=== PATIENT | male | born 1930 | race Caucasian/White ===

== ENCOUNTER 2016-05-15 10:11 | Outpatient (CLI) | payer MEDICARE | END 2016-05-15 10:12 | disposition home or self-care (01) | DX: E87.1 Hypo-osmolality and hyponatremia (principal); R97.20 Elevated prostate specific antigen [PSA]; I10 Essential (primary) hypertension ==

== ENCOUNTER 2017-09-22 14:34 | Outpatient (CLI) | payer MEDICARE ==
[2017-09-22 19:21] LABS: PSA FREE 0.52 ng/mL (0.16-2.81)
[2017-09-22 19:22] LABS: PSA TOTAL 2.55 ng/mL (0.000-2.000)
[2017-09-22 19:25] LABS: ALBUMIN 3.7 g/dL (3.2-5.5); ALKALINE PHOSPHATASE 46 IU/L (42-121); ALT ALANINE AMINOTRANSFERASE 13 IU/L (10-60); AST ASPARTATE AMINOTRANSFERASE 24 IU/L (10-42); BUN - BLOOD UREA NITROGEN 31 mg/dL (6-20); CALCIUM 8.8 mg/dL (8.5-10.3); CARBON DIOXIDE - CO2 23 mmol/L (21-32); CHLORIDE 97 mmol/L (101-111); CHOL/HDL RATIO 2.6 (<5.0); CHOLESTEROL 128 mg/dL; CREATININE 0.8 mg/dL (0.6-1.2); GFR - MDRD 91 (>89); GLUCOSE 79 mg/dL (70-100); HDL CHOLESTEROL 50 mg/dL; LDL CHOLESTEROL,CALCULATED 70 mg/dL; LDL/HDL RATIO 1.4 (<3.6); SODIUM 128 mmol/L (135-145); VLDL CHOLESTEROL 8 mg/dL
[2017-09-22 19:48] LABS: ALBUMIN/GLOBULIN RATIO 1.2 (1.0-2.2); TOTAL PROTEIN 6.9 g/dL (6.7-8.2)
[2017-09-22 20:08] LABS: BASOPHILS # (AUTO) 0.1 10^3/uL (0.0-0.1); BASOPHILS % (AUTO) 1.1 %; EOSINOPHILS # (AUTO) 0.2 10^3/uL (0.0-0.7); EOSINOPHILS % (AUTO) 2.6 %; HGB - HEMOGLOBIN 13.3 g/dL (14.0-18.0); LYMPHOCYTES # (AUTO) 1.7 10^3/uL (1.5-3.5); LYMPHOCYTES % (AUTO) 21.5 %; MEAN CORPUSCULAR HGB CONC 33.7 g/dL (32.0-36.0); MEAN PLATELET VOLUME 8.6 fL (7.4-11.4); MONOCYTES # (AUTO) 1.3 10^3/uL (0.0-1.0); MONOCYTES % (AUTO) 16.4 %; NEUTROPHILS # (AUTO) 4.7 10^3/uL (1.5-6.6); NEUTROPHILS % (AUTO) 58.4 %; RED CELL DISTRIBUTION WIDTH 13.3 % (12.0-15.0); WHITE BLOOD COUNT 8.1 x10^3/uL (4.8-10.8)
[2017-09-22 20:24] LABS: PLT - PLATELET COUNT 200 10^3/uL (130-450)
== END 2017-09-22 14:35 | disposition home or self-care (01) ==
LOC: LAB.WCP 14:34
PROVIDERS: ATTEND Family Medicine
DX: I10 Essential (primary) hypertension (principal); R97.20 Elevated prostate specific antigen [PSA]
CPT/HCPCS: 36415; 80053; 80061; 83721; 84154; 85025

== ENCOUNTER 2017-10-01 14:55 | Outpatient (CLI) | payer MEDICARE ==
[2017-10-01 19:19] LABS: CREATININE 0.8 mg/dL (0.6-1.2)
== END 2017-10-01 14:56 | disposition home or self-care (01) ==
LOC: LAB.WCP 14:55
PROVIDERS: ATTEND Family Medicine
DX: E87.1 Hypo-osmolality and hyponatremia (principal)
CPT/HCPCS: 36415; 80048

== ENCOUNTER 2017-10-05 14:30 | Outpatient (CLI) | payer MEDICARE ==
[2017-10-05 19:39] LABS: CALCIUM 8.9 mg/dL (8.5-10.3); CREATININE 0.7 mg/dL (0.6-1.2)
== END 2017-10-05 14:31 | disposition home or self-care (01) ==
LOC: LAB.WCP 14:30
PROVIDERS: ATTEND Family Medicine
DX: E87.1 Hypo-osmolality and hyponatremia (principal)
CPT/HCPCS: 36415; 80048

== ENCOUNTER 2017-10-13 14:46 | Outpatient (CLI) | payer MEDICARE ==
[2017-10-13 19:03] LABS: CALCIUM 8.8 mg/dL (8.5-10.3); CREATININE 0.7 mg/dL (0.6-1.2)
== END 2017-10-13 14:47 | disposition home or self-care (01) ==
LOC: LAB.WCP 14:46
PROVIDERS: ATTEND Family Medicine
DX: E87.1 Hypo-osmolality and hyponatremia (principal)
CPT/HCPCS: 36415; 80048

== ENCOUNTER 2017-10-28 15:00 | Outpatient (CLI) | payer MEDICARE ==
[2017-10-28 19:44] LABS: CALCIUM 8.6 mg/dL (8.5-10.3); CREATININE 0.7 mg/dL (0.6-1.2)
== END 2017-10-28 15:01 | disposition home or self-care (01) ==
LOC: LAB.WCP 15:00
PROVIDERS: ATTEND Family Medicine
DX: E87.1 Hypo-osmolality and hyponatremia (principal)
CPT/HCPCS: 36415; 80048

== ENCOUNTER 2017-11-17 14:30 | Outpatient (CLI) | payer MEDICARE ==
[2017-11-17 18:55] LABS: CALCIUM 8.6 mg/dL (8.5-10.3); CREATININE 0.7 mg/dL (0.6-1.2)
== END 2017-11-17 14:31 | disposition home or self-care (01) ==
LOC: LAB.WCP 14:30
PROVIDERS: ATTEND Family Medicine
DX: E87.1 Hypo-osmolality and hyponatremia (principal)
CPT/HCPCS: 36415; 80048; 81599; 82570; 83935; 84300

== ENCOUNTER 2017-12-18 13:50 | Outpatient (CLI) | payer MEDICARE ==
[2017-12-18 18:57] LABS: CALCIUM 8.7 mg/dL (8.5-10.3); CREATININE 0.7 mg/dL (0.6-1.2)
== END 2017-12-18 13:51 | disposition home or self-care (01) ==
LOC: LAB.WCP 13:50
PROVIDERS: ATTEND Family Medicine
DX: I10 Essential (primary) hypertension (principal)
CPT/HCPCS: 36415; 80048; 80053

== ENCOUNTER 2017-12-22 13:13 | Outpatient (CLI) | payer MEDICARE ==
--- NOTE | 2017-12-22 15:00 | XRAY Report ---
Reason: DIFFICULTY SWALLOWING Procedure Date: 12/22/2017 Accession Number: [id number] / [id number] Procedure: XR - Chest 2 View X-Ray CPT Code: 79054 FULL RESULT: EXAM: CHEST RADIOGRAPHY. EXAM DATE: 12/22/2017 02:13 PM. CLINICAL HISTORY: Difficulty swallowing. COMPARISON: None. TECHNIQUE: 2 views. FINDINGS: Limited examination due to underpenetrated AP view. Lungs/Pleura: No focal opacities evident. No pleural effusion. No pneumothorax. Normal volumes. Mediastinum: Heart and mediastinal contours are unremarkable. Other: Contrast within the stomach is related to modified barium swallow. This reveals a sliding hiatal hernia. IMPRESSION: No acute cardiopulmonary abnormality. Sliding hiatal hernia. [facility]
--- NOTE | 2017-12-22 15:23 | XRAY Report ---
Reason: DIFFICULTY SWALLOWING Procedure Date: 12/22/2017 Accession Number: [id number] / [id number] Procedure: FL - Modified Barium Swallow W/SP CPT Code: FULL RESULT: EXAM: MODIFIED BARIUM SWALLOW. EXAM DATE: 12/22/2017 01:50 PM. CLINICAL HISTORY: Difficulty swallowing. COMPARISON: None. TECHNIQUE: Under the direction of speech pathology, patient swallowed various consistencies of barium under lateral fluoroscopic observation of the neck. Fluoroscopy Time: 35 seconds. FINDINGS: Swallowing Mechanism: Delayed initiation of the swallowing reflex. Airway Protection: Normal epiglottic motion. No episodes of tracheal penetration or aspiration with all consistencies of barium. Pharynx: Normal. No significant vallecular or piriform sinus contrast pooling. Other: None. IMPRESSION: Delayed initiation of the swallow mechanism. No aspiration identified. [facility]
== END 2017-12-22 13:14 | disposition home or self-care (01) ==
LOC: DI 13:13
PROVIDERS: ATTEND Family Medicine
DX: R13.10 Dysphagia, unspecified (principal); E87.1 Hypo-osmolality and hyponatremia; I10 Essential (primary) hypertension; K44.9 Diaphragmatic hernia without obstruction or gangrene
CPT/HCPCS: 71046; 74230

== ENCOUNTER 2018-01-15 14:58 | Outpatient (CLI) | payer MEDICARE ==
[~2018-01-15 14:58] MED LIST: IOVERSOL 320 100 ML VIAL IVP ONE
[2018-01-15] MEDS ORDERED: IOVERSOL 320 100 ML VIAL IVP ONE (16:19)
--- NOTE | 2018-01-15 21:38 | CT Report ---
Reason: SYNDROME OF INAPPROPRIATE ANTIDIURETIC, HORMONE SE Procedure Date: 01/15/2018 Accession Number: [id number] / [id number] Procedure: CT - Chest W/ CPT Code: FULL RESULT: EXAM: CT CHEST EXAM DATE: 01/15/2018 03:54 PM. CLINICAL HISTORY: SYNDROME OF INAPPROPRIATE ANTIDIURETIC, HORMONE SE. COMPARISONS: None. TECHNIQUE: Routine helical CT imaging was performed through the chest. IV contrast: 80 cc Isovue-300. Reconstructions: Coronal and sagittal. In accordance with CT protocol optimization, one or more of the following dose reduction techniques were utilized for this exam: automated exposure control, adjustment of mA and/or KV based on patient size, or use of iterative reconstructive technique. FINDINGS: Lungs/Pleura: Mild bronchiectasis. Left upper lobe mass 2.0 cm on series 4 image 25. Numerous other nodules ranging from tiny to several mm scattered through the periphery of both lungs. No definite acute infiltrate, effusion, or pneumothorax. Mediastinum: Normal overall heart size. No pericardial effusion. At least three-vessel coronary artery calcification. Dilation of main pulmonary artery measuring 3.6 cm, indicating pulmonary artery hypertension. No lymphadenopathy. Small hiatal hernia. Bones: Degenerative changes. Visualized Abdomen: Contracted gallbladder with mural calcifications versus tiny gallstones. No ductal dilation. Otherwise unremarkable. Other: None. IMPRESSION: 1. Left lung mass with numerous other nodules, most likely metastatic. 2. Pulmonary artery hypertension, possible cholelithiasis, and other chronic or incidental findings. [facility]
== END 2018-01-15 14:59 | disposition home or self-care (01) ==
LOC: DI 14:58
PROVIDERS: ATTEND Family Medicine
DX: R91.8 Other nonspecific abnormal finding of lung field (principal); I27.20 Pulmonary hypertension, unspecified; E22.2 Syndrome of inappropriate secretion of antidiuretic hormone; R13.10 Dysphagia, unspecified; E87.1 Hypo-osmolality and hyponatremia
CPT/HCPCS: 71260; Q9967

== ENCOUNTER 2018-01-25 14:11 | Outpatient (CLI) | payer MEDICARE ==
[2018-01-25 19:46] LABS: ALBUMIN 3.8 g/dL (3.2-5.5); ALBUMIN/GLOBULIN RATIO 1.2 (1.0-2.2); BILIRUBIN,TOTAL 0.8 mg/dL (0.2-1.0); CALCIUM 8.8 mg/dL (8.5-10.3); CREATININE 0.7 mg/dL (0.6-1.2)
== END 2018-01-25 14:12 | disposition home or self-care (01) ==
LOC: LAB.WCP 14:11
PROVIDERS: ATTEND Family Medicine
DX: I10 Essential (primary) hypertension (principal)
CPT/HCPCS: 36415; 80053

== ENCOUNTER 2018-02-08 08:00 | Outpatient (CLI) | payer MEDICARE | END 2018-02-08 23:59 | disposition home or self-care (01) | LOC: LAB.WCP 08:00 | PROVIDERS: ATTEND Family Medicine | DX: R91.8 Other nonspecific abnormal finding of lung field (principal); E22.2 Syndrome of inappropriate secretion of antidiuretic hormone | CPT/HCPCS: 36415; 82378; 86301 ==

== ENCOUNTER 2018-05-04 08:00 | Outpatient (CLI) | payer MEDICARE ==
[2018-05-04 19:07] LABS: CALCIUM 8.8 mg/dL (8.5-10.3)
[2018-05-04 19:25] LABS: CREATININE 0.6 mg/dL (0.6-1.2)
[2018-05-04 19:26] LABS: HGB - HEMOGLOBIN 13.6 g/dL (14.0-18.0); MEAN CORPUSCULAR HEMOGLOBIN 32.8 pg (27.0-31.0); MEAN CORPUSCULAR HGB CONC 33.8 g/dL (32.0-36.0); MEAN CORPUSCULAR VOLUME 97.1 fL (80.0-94.0); MEAN PLATELET VOLUME 7.8 fL (7.4-11.4); RED BLOOD COUNT 4.13 10^6/uL (4.70-6.10); RED CELL DISTRIBUTION WIDTH 13.9 % (12.0-15.0)
== END 2018-05-04 23:59 | disposition home or self-care (01) ==
LOC: LAB.WCP 08:00
PROVIDERS: ATTEND Family Medicine
DX: R06.00 Dyspnea, unspecified (principal)
CPT/HCPCS: 36415; 80048; 83880; 85027